=== PATIENT | male | born 1970 | race Caucasian/White ===

== ENCOUNTER 2024-01-08 03:25 | Inpatient (IN) | payer SELFPAY ==
[2024-01-08 03:52] LABS: Absolute Basophils 0.1 K/uL (0-0.5); Absolute Eosinophils 0.3 K/uL (0-0.5); Absolute Lymphocytes (CBC) 4.3 K/uL (0.7-4.9); Absolute Monocytes 0.8 K/uL (0.1-1.3); Absolute Neutrophil 3.5 K/uL (1.8-8.0); Basophils % 0.8 % (0-1.3); Hematocrit 39.4 % (39.6-49.0); Hemoglobin 13.5 g/dL (13.6-17.9); Lymphocytes % 48.1 % (15.3-44.8); MCH 32.9 pg (27.0-35.0); MCHC 34.4 g/dL (32.0-36.0); MCV 95.9 fL (80-100); MPV 7.7 fL (7.6-11.3); Monocytes % 9.3 % (3.3-12.3); Neutrophils % 38.8 % (41.7-73.7); Nucleated Red Blood Cells % 0.1 % (0-0); Platelets 244 thou/uL (152-406); RBC Red Blood Cell Count 4.11 M/uL (4.33-5.43); Red Cell Distribution Width 12.2 % (12.1-15.2)
[2024-01-08 03:53] LABS: PT Prothrombin Time 11.9 SECONDS (9.4-12.5); Protime INR 1.06
[2024-01-08 04:10] LABS: Albumin 3.7 g/dL (3.4-5.0); Albumin/Globulin Ratio 1.3 (1.1-1.8); Anion Gap 11.4 mEq/L (5.0-15.0); Bilirubin Direct 0.3 mg/dL (0-0.2); Bilirubin Indirect, Calculated 0.4 mg/dL (0.2-0.8); Bilirubin Total 0.7 mg/dL (0.2-1.0); Globulin 2.8 g/dL (2.3-3.5); Magnesium 1.7 mg/dL (1.6-2.4); Potassium 3.4 mEq/L (3.5-5.1); Protein, Total 6.5 g/dL (6.4-8.2); Troponin High Sensitivity 4.8 pg/mL (<58.9)
[2024-01-08 04:19] LABS: Thyroid Stimulating Hormone 4.38 uIU/mL (0.358-3.740)
[2024-01-08] MEDS ORDERED: ASPIRIN 81 MG CHEWABLE TABLET ONE (04:27)
[2024-01-08 06:13] LABS: Anion Gap 10.5 mEq/L (5.0-15.0); Potassium 3.5 mEq/L (3.5-5.1); Troponin High Sensitivity 4.6 pg/mL (<58.9)
--- NOTE | 2024-01-08 06:17 | EDPHYS ---
Physician Documentation [facility] Name: Jamar Hernandez Age: 53 yrs Sex: Male : 1970 Arrival Date: 01/08/2024 Time: 03:25 Bed 17 Private MD: ED Physician Juan Miguel Marie HPI: 01/07 03:33 This 53 yrs old Male presents to ER via Unassigned with complaints of Chest sp4 Pain, Numbness Of Arm. 06:08 53-year-old female presents with acute onset of chest pain, left arm numbness, and he sp4 is reporting several weeks of exertional dyspnea. . Historical: - Allergies: 03:37 No Known Allergies; ss - PMHx: 03:37 Anxiety; ss - Infectious Disease History:: Denies. - Social history:: Smoking status: Patient reports use of chewing tobacco. - Family history:: not pertinent. ROS: 06:08 Constitutional: Negative for fever, chills, and weight loss, left chest pain positive sp4 left arm numbness, positive exertional dyspnea 06:08 All other systems are negative, Exam: 04:34 Constitutional: This is a well developed, well nourished patient who is awake, alert, sp4 and in no acute distress. Head/Face: Normocephalic, atraumatic. Eyes: Pupils equal round and reactive to light, extra-ocular motions intact. Lids and lashes normal. Conjunctiva and sclera are not injected. Cornea within normal limits. Periorbital areas with no swelling, redness, or edema. ENT: Nares patent. No nasal discharge, no septal abnormalities noted. Tympanic membranes are normal and external auditory canals are clear. Oropharynx with no redness, swelling, or masses, exudates, or evidence of obstruction, uvula midline. Mucous membranes moist. Neck: Trachea midline, no thyromegaly or masses palpated, and no cervical lymphadenopathy. Supple, full range of motion without nuchal rigidity, or vertebral point tenderness. Chest/axilla: Normal chest wall appearance and motion. Nontender with no deformity. No lesions are appreciated. Cardiovascular: Regular rate and rhythm with a normal S1 and S2. No gallops, murmurs, or rubs. Normal PMI, no JVD. No pulse deficits. Respiratory: Lungs have equal breath sounds bilaterally, clear to auscultation and percussion. No rales, rhonchi or wheezes noted. No increased work of breathing, no retractions or nasal flaring. Abdomen/GI: Soft, with normal bowel sounds. No distension or tympany. No guarding or rebound. No evidence of tenderness throughout. Back: No spinal tenderness. No costovertebral tenderness. Skin: Warm, dry with normal turgor. Normal color with no rashes, no lesions, and no evidence of cellulitis. MS/ Extremity: Pulses equal, no cyanosis. Neurovascular intact. Full, normal range of motion. Neuro: Awake and alert, GCS 15, oriented to person, place, time, and situation. Cranial nerves II-XII grossly intact. Motor strength 5/5 in all extremities. Sensory grossly intact. Psych: Awake, alert, with orientation to person, place and time. Behavior, mood, and affect are within normal limits 04:34 ECG was reviewed by the Attending Physician. EKG at 0 330 normal sinus rhythm rate 82 Vital Signs: 03:35 BP 137 / 71; Pulse 83; Resp 16; Temp 98.4(TE); Pulse Ox 95% ; Weight 142.43 kg; Height ss 6 ft. 0 in. ; Pain 4/10; 05:44 BP 132 / 70; Pulse 76; Resp 14; Pulse Ox 100% ; Pain 2/10; jm12 08:39 BP 126 / 69; Pulse 70; Resp 16 S; Pulse Ox 95% on R/A; Pain 0/10; kc6 09:36 BP 111 / 59; Pulse 80; Resp 16 S; Pulse Ox 96% on R/A; kc6 03:35 Body Mass Index 42.59 (142.43 kg, 182.88 cm) ss 03:35 Pain Scale: Adult ss 05:44 Pain Scale: Adult jm12 08:39 Pain Scale: Adult kc6 MDM: 03:34 Patient medically screened. sp4 06:08 ED course: EXAMINATION: XR CHEST 1 VIEW INDICATION: Male, 53 years old, CHEST PAIN sp4 TECHNIQUE: 1 view COMPARISON(S): None. FINDINGS: Soft tissue attenuation and beam underpenetration limit assessment. SUPPORT DEVICES: Overlying leads. LUNGS/PLEURA: No consolidation, pleural effusion, or pneumothorax. HEART/MEDIASTINUM: Size within normal limits for technique. OTHER: No acute osseous findings. IMPRESSION: No acute cardiopulmonary findings.. 06:08 Differential diagnosis: acute pericarditis, anxiety, chest wall pain, cholecystitis, sp4 Cholelithiasis esophagitis, gastritis. HEART Score: History: Moderately Suspicious (1), ECG: Normal (0), Age: > 45 and < 65 years (1), Risk Factors: > or = 3 Risk factors for atherosclerotic disease (2), Troponin: < or = 1 x Normal Limit (0), Total Score = 4. Data reviewed: vital signs, nurses notes, EMS record, lab test result(s), EKG, radiologic studies, plain films. ED course: Patient warrants admission secondary to multiple risk factors also hyponatremia . 06:17 Consideration of Admission/Observation Patient was admitted/placed on observation. sp4 Escalation of care including admission/observation considered. Management of patient was discussed with the following: Hospitalist: Admit team. Lot Technician: Daria FELICIANO Cardiology . 22:59 ED course: Hyponatremia likely secondary to alcohol abuse . sp4 01/07 03:34 Order name: Basic Metabolic Panel; Complete Time: 05:23 sp4 01/07 03:34 Order name: CBC with Diff; Complete Time: 05:23 sp4 01/07 03:34 Order name: LFT's; Complete Time: 05:23 sp4 01/07 03:34 Order name: Magnesium; Complete Time: 05:23 sp4 01/07 03:34 Order name: NT PRO-BNP; Complete Time: 05:23 sp4 01/07 03:34 Order name: PT-INR; Complete Time: 05:23 sp4 01/07 03:34 Order name: Troponin HS; Complete Time: 05:23 sp4 01/07 03:41 Order name: TSH; Complete Time: 05:23 sp4 01/07 03:41 Order name: T4 Free; Complete Time: 05:23 sp4 01/07 05:23 Order name: BMP; Complete Time: 06:17 sp4 01/07 05:24 Order name: Troponin High Sensitivity; Complete Time: 06:17 sp4 01/07 06:59 Order name: Alcohol Level; Complete Time: 22:59 sp4 01/07 08:56 Order name: Urinalysis w/ reflexes EDVT 01/07 08:56 Order name: Basic Metabolic Panel EDVT 01/07 08:56 Order name: Basic Metabolic Panel EDVT 01/07 08:56 Order name: Basic Metabolic Panel EDMS 01/07 08:56 Order name: Basic Metabolic Panel EDMS 01/07 08:56 Order name: CBC with Automated Diff EDMS 01/07 08:56 Order name: CBC with Automated Diff EDMS 01/07 08:56 Order name: CBC with Automated Diff EDMS 01/07 08:56 Order name: CBC with Automated Diff EDMS 01/07 08:56 Order name: Lipid Profile EDMS 01/07 08:56 Order name: Lipid Profile EDMS 01/07 08:56 Order name: Magnesium EDMS 01/07 08:56 Order name: Magnesium EDMS 01/07 08:56 Order name: Magnesium EDMS 01/07 08:56 Order name: Magnesium EDMS 01/07 08:56 Order name: Phosphorus EDMS 01/07 08:56 Order name: Phosphorus EDMS 01/07 08:56 Order name: Phosphorus EDMS 01/07 08:57 Order name: Phosphorus EDMS 01/07 08:57 Order name: Troponin High Sensitivity EDMS 01/07 08:57 Order name: Troponin High Sensitivity; Complete Time: 22:59 EDMS 01/07 08:57 Order name: Troponin High Sensitivity EDMS 01/07 03:34 Order name: XRAY Chest (1 view) sp4 01/07 06:59 Order name: CT Chest For PE Angio; Complete Time: 22:59 sp4 01/07 08:56 Order name: Echo with Doppler EDMS 01/07 08:56 Order name: Echo with Doppler EDMS 01/07 03:34 Order name: Cardiac monitoring; Complete Time: 03:40 sp4 01/07 03:34 Order name: EKG - Nurse/Tech; Complete Time: 03:40 sp4 01/07 03:34 Order name: IV Saline Lock; Complete Time: 03:40 sp4 01/07 03:34 Order name: Labs collected and sent; Complete Time: 03:40 sp4 01/07 03:34 Order name: O2 Per Protocol; Complete Time: 03:40 sp4 01/07 03:34 Order name: O2 Sat Monitoring; Complete Time: 03:40 sp4 EC:34 Rate is 82 beats/min. Rhythm is regular, Normal Sinus Rhythm. QRS [place] is Normal. [place] sp4 interval is normal. QRS interval is normal. QT interval is normal. No Q waves. T waves are Normal. No ST changes noted. Clinical impression: Normal ECG. Interpreted by me. Reviewed by me. Administered Medications: 04:20 Drug: Aspirin PO Chewable Tablet 324 mg PO once; 81 mg tablets x 4 Route: PO; jm12 08:00 Follow up: Response: No adverse reaction [facility] 05:39 Drug: NS 0.9% IV 1000 ml IV at 1 bolus Per protocol; 1000 mL bolus Route: IV; Rate: 1 jm12 bolus; Site: left antecubital; 08:25 Follow up: Response: No adverse reaction; IV Status: Completed infusion; IV Intake: kc6 1000ml 08:00 Drug: Ativan IVP 1 mg IVP once Route: IVP; Site: left antecubital; 6 08:39 Follow up: Response: No adverse reaction; Pain is decreased; Anxiety decreased; RASS: kc6 Alert and Calm (0) 08:00 Drug: Ativan IVP 1 mg IVP once Route: IVP; Site: left antecubital; 6 08:39 Follow up: Response: No adverse reaction; Pain is decreased; Anxiety decreased; RASS: kc6 Alert and Calm (0) Disposition Summary: 01/08/24 06:17 Hospitalization Ordered Notes: Hospitalization Status: Observation sp4 Provider: Zack Cornell Location: Telemetry/MedSur (observation) sp4 Condition: Stable sp4 Problem: new sp4 Symptoms: have improved sp4 Bed/Room Type: Standard sp4 Room Assignment: 221(01/08/24 09:06) Diagnosis - Unstable angina sp4 - Hypo-osmolality and hyponatremia sp4 Forms: - Medication Reconciliation Form sp4 - SBAR form sp4 - Leadership Thank You Letter sp4 Signatures: Dispatcher [employer] EDMS aJbari Looney MD MD cha Blanchard, Shelby RN RN Dolores Brambila Kaitlyn, RN RN kc6 Juan Miguel Marie MD MD sp4 An Carvalho RN RN jm12 Corrections: (The following items were deleted from the chart) 03:34 03:34 BASIC METABOLIC PANEL+C.LAB.BRZ ordered. EDMS EDMS 03:34 03:34 CBC+H.LAB.BRZ ordered. EDMS EDMS 03:34 03:34 HEPATIC FUNCTION+C.LAB.BRZ ordered. EDMS EDMS 03:34 03:34 MAGNESIUM+C.LAB.BRZ ordered. EDMS EDMS 03:35 03:34 PROBNP+C.LAB.BRZ ordered. EDMS EDMS 03:35 03:34 PROTIME (+INR)+COAG.LAB.BRZ ordered. EDMS EDMS 03:35 03:34 Troponin High Sensitivity+C.LAB.BRZ ordered. EDMS EDMS 03:35 03:35 Chest Single View+RAD.RAD.BRZ ordered. EDMS EDMS 09:06 06:17 sp4 eb
--- NOTE | 2024-01-08 06:17 | ER ---
Nurse's Notes [facility] Name: Jamar Hernandez Age: 53 yrs Sex: Male : 1970 Arrival Date: 01/08/2024 Time: 03:25 Bed 17 Private MD: Diagnosis: Unstable angina;Hypo-osmolality and hyponatremia Presentation: 01/07 03:35 Chief complaint: Patient states: episodic chest discomfort x 1 week that got worse this ss morning. PT c/o SOB, chest tightness with L arm numbness. Pt reports symptoms feel as if they are subsiding. Coronavirus screen: Client denies travel out of the [place] in the last 14 days. Ebola Screen: Patient denies exposure to infectious person. Patient denies travel to an Ebola-affected area in the 21 days before illness onset. Initial Sepsis Screen: Does the patient meet any 2 criteria? No. Patient's initial sepsis screen is negative. Does the patient have a suspected source of infection? No. Patient's initial sepsis screen is negative. Risk Assessment: Do you want to hurt yourself or someone else? Patient reports no desire to harm self or others. Onset of symptoms was January 08, 2024. 03:35 Method Of Arrival: Ambulatory ss 03:35 Acuity: CHARLES 2 ss Triage Assessment: 03:37 General: Appears uncomfortable, Behavior is anxious, tearful. Neuro: Level of ss Consciousness is awake, alert, obeys commands, Oriented to person, place, time, situation, Human Resources Technician are equal bilaterally Moves all extremities. Full function Gait is steady, Speech is normal, Facial symmetry appears normal, Pupils are PERRLA, Denies weakness blurred vision headache. Respiratory: Airway is patent Respiratory effort is even, unlabored, Respiratory pattern is regular, symmetrical. Derm: Skin is intact, is healthy with good turgor, Skin is pink, warm \T\ dry. normal. Historical: - Allergies: 03:37 No Known Allergies; ss - PMHx: 03:37 Anxiety; ss - Infectious Disease History:: Denies. - Social history:: Smoking status: Patient reports use of chewing tobacco. - Family history:: not pertinent. Screenin:41 [facility] ED Fall Risk Assessment (Adult) History of falling in the last 3 months, jm12 including since admission No falls in past 3 months (0 pts) Confusion or Disorientation No (0 pts) Intoxicated or Sedated No (0 pts) Impaired Gait No (0 pts) Mobility Assist Device Used No (0 pt) Altered Elimination No (0 pt) Score/Fall Risk Level 0 - 2 = Low Risk. Abuse screen: Denies threats or abuse. Denies injuries from another. Nutritional screening: No deficits noted. Tuberculosis screening: No symptoms or risk factors identified. Assessment: 04:10 General: Appears in no apparent distress. Behavior is calm, cooperative. jm12 04:10 Pain: Complains of pain in chest. Neuro: No deficits noted. Cardiovascular: No deficits jm12 noted. Cardiovascular: Chest pain. Respiratory: No deficits noted. GI: No deficits noted. No signs and/or symptoms were reported involving the gastrointestinal system. : No deficits noted. No signs and/or symptoms were reported regarding the genitourinary system. EENT: No deficits noted. No signs and/or symptoms were reported regarding the EENT system. Derm: No deficits noted. No signs and/or symptoms reported regarding the dermatologic system. Musculoskeletal:. 07:15 General: Appears in no apparent distress. comfortable, well groomed, well developed, kc6 Behavior is calm, cooperative, appropriate for age. Pain: Denies pain. Neuro: Level of Consciousness is awake, alert, obeys commands, Oriented to person, place, time, situation, Appropriate for age. Cardiovascular: Capillary refill < 3 seconds. Respiratory: Airway is patent Trachea midline Respiratory effort is even, unlabored, Respiratory pattern is regular, symmetrical. GI: No signs and/or symptoms were reported involving the gastrointestinal system. : No signs and/or symptoms were reported regarding the genitourinary system. EENT: No signs and/or symptoms were reported regarding the EENT system. Derm: No signs and/or symptoms reported regarding the dermatologic system. Skin is intact, is healthy with good turgor, Skin is pink, warm \T\ dry. Musculoskeletal: No signs and/or symptoms reported regarding the musculoskeletal system. Circulation, motion, and sensation intact. Capillary refill < 3 seconds, Range of motion: intact in all extremities. 08:24 Reassessment: Patient appears in no apparent distress at this time. No changes from kc6 previously documented assessment. Patient and/or family updated on plan of care and expected duration. Pain level reassessed. Patient is alert, oriented x 3, equal unlabored respirations, skin warm/dry/pink. 09:36 Reassessment: Patient appears in no apparent distress at this time. No changes from kc6 previously documented assessment. Patient and/or family updated on plan of care and expected duration. Pain level reassessed. Patient is alert, oriented x 3, equal unlabored respirations, skin warm/dry/pink. Vital Signs: 03:35 BP 137 / 71; Pulse 83; Resp 16; Temp 98.4(TE); Pulse Ox 95% ; Weight 142.43 kg; Height ss 6 ft. 0 in. ; Pain 4/10; 05:44 BP 132 / 70; Pulse 76; Resp 14; Pulse Ox 100% ; Pain 2/10; jm12 08:39 BP 126 / 69; Pulse 70; Resp 16 S; Pulse Ox 95% on R/A; Pain 0/10; kc6 09:36 BP 111 / 59; Pulse 80; Resp 16 S; Pulse Ox 96% on R/A; kc6 03:35 Body Mass Index 42.59 (142.43 kg, 182.88 cm) ss 03:35 Pain Scale: Adult ss 05:44 Pain Scale: Adult jm12 08:39 Pain Scale: Adult kc6 ED Course: 03:26 Patient arrived in ED. jj6 03:33 Juan Miguel Marie MD is Attending Physician. sp4 03:33 Sabina Manzanares, MARTHA is Primary Nurse. ss 03:37 Triage completed. ss 03:37 Arm band placed on right wrist. ss 03:39 Inserted saline lock: 20 gauge in left antecubital area, using aseptic technique. Blood ss collected. Flushed with 10 mL NS. 03:49 XRAY Chest (1 view) In Process Unspecified. EDMS 06:11 Viri Leiva MD is Hospitalizing Provider. sp4 06:11 Hospitalizing Provider role handed off by Viri Leiva MD sp4 06:11 Zack Cornell is Hospitalizing Provider. sp4 07:00 Patient has correct armband on for positive identification. Placed in gown. Bed in low kc6 position. Call light in reach. Side rails up X 1. Report received from Sabina Hernandez RN. environmental lawyer on. Pulse ox on. NIBP on. Door closed. Noise minimized. Lights dimmed. Warm blanket given. Pillow given. 07:00 Patient maintains SpO2 saturation greater than 95% on room air. kc6 08:18 CT Chest For PE Angio In Process Unspecified. EDMS 09:47 No provider procedures requiring assistance completed. Patient admitted, IV remains in kc6 place. Administered Medications: 04:20 Drug: Aspirin PO Chewable Tablet 324 mg PO once; 81 mg tablets x 4 Route: PO; jm12 08:00 Follow up: Response: No adverse reaction kc6 05:39 Drug: NS 0.9% IV 1000 ml IV at 1 bolus Per protocol; 1000 mL bolus Route: IV; Rate: 1 jm12 bolus; Site: left antecubital; 08:25 Follow up: Response: No adverse reaction; IV Status: Completed infusion; IV Intake: kc6 1000ml 08:00 Drug: Ativan IVP 1 mg IVP once Route: IVP; Site: left antecubital; kc6 08:39 Follow up: Response: No adverse reaction; Pain is decreased; Anxiety decreased; RASS: 6 Alert and Calm (0) 08:00 Drug: Ativan IVP 1 mg IVP once Route: IVP; Site: left antecubital; kc6 08:39 Follow up: Response: No adverse reaction; Pain is decreased; Anxiety decreased; RASS: kc6 Alert and Calm (0) Medication: 09:47 VIS not applicable for this client. kc6 Intake: 08:25 IV: 1000ml; Total: 1000ml. kc6 Outcome: 06:17 Decision to Hospitalize by Provider. sp4 09:47 Admitted to Med/surg accompanied by tech, via wheelchair, with chart, kc6 09:47 Condition: good 09:47 Instructed on the need for admit, 09:48 Patient left the ED. 6 Signatures: Dispatcher [employer] EDTN Sabina Manzanares RN RN ss Jeffries, Jennifer jj6 Campbell, Kaitlyn, RN RN kc6 Juan Miguel Marie MD MD sp4 An Carvalho RN RN jm12
--- NOTE | 2024-01-08 06:51 | P.HP ---
Certification for Inpatient Patient admitted to: Observation With expected LOS: <2 Midnights Patient will require the following post-hospital care: None Practitioner: I am a practitioner with admitting privileges, knowledge of patient current condition, hospital course, and medical plan of care. Services: Services provided to patient in accordance with Admission requirements found in Title 42 Section 412.3 of the Code of Federal Regulations Patient History Date of Service: 01/08/24 Reason for admission: Chest pain r/o History of Present Illness: Jamar Hernandez is a 53 year old male with Pmhx of anxiety and tobacco abuse who presents to the ED with acute chest pain that radiates to the left arm associated with exertional dyspnea for a few weeks and now still with intermitent chest pain/pressure. Troponin and EKG negative but continues with chest pain. Blood pressure WNL and HR NSR. On evaluation, his face is flushed, he ambulated independently, conversing well, and in no acute distress. He reports drinking 6-8 beers nightly. He reports visiting the area for vacation at the beach. Initial vitals BP 137 / 71; Pulse 83; Resp 16; Temp 98.4(TE); Pulse Ox 95% Laboratory evaluation sodium 127, potassium 3.4, serum glucose 115, serum alcohol 78 Chest xray result pending CTA chest reports "No significant pericardial or pleural fluid. 22 mm pericardial lymph nodes seen.Inadequate opacification of the pulmonary arterial tree for assessment. No acute aortic finding seen. No acute lung findings seen" Jamar will be admitted to hospitalist service for further evaluation of unstable angina, Dr. Huff consulted Home Medications: Fenofibrate [Tricor] 145 mg PO DAILY 01/08/24 - Past Medical/Surgical History -: Anxiety -: Hypertension -: Hyperlipidemia -: Hypercholesterolemia -: Alcohol abuse - Social History Smoking Status: Never smoker Alcohol use: Yes CD- Drugs: No Review of Systems Respiratory: Shortness of Breath Cardiovascular: Chest Pain (radiates to left arm) Physical Examination - Physical Exam General: Alert, In no apparent distress, Oriented x3 HEENT: Atraumatic, Normocephalic, PERRLA Neck: Supple, JVD not distended Respiratory: Clear to auscultation bilaterally, Normal air movement Cardiovascular: Normal pulses, Regular rate/rhythm, Normal S1 S2, Edema (trace to BLE) Capillary refill: <2 Seconds Gastrointestinal: Normal bowel sounds, Soft and benign, Distended (obese) Musculoskeletal: No clubbing Integumentary: No rashes Neurological: Normal speech, Normal tone - Studies Laboratory Data (last 24 hrs) 01/08/24 01/08/24 01/08/24 05:48 03:34 03:34 WBC 8.90 Hgb 13.5 L Hct 39.4 L Plt Count 244 PT 11.9 INR 1.06 Sodium 128 L Potassium 3.5 BUN 7 Creatinine 1.15 Glucose 122 H Magnesium Total Bilirubin AST ALT Alkaline Phosphatase 01/08/24 03:34 WBC Hgb Hct Plt Count PT INR Sodium 127 L Potassium 3.4 L BUN 7 Creatinine 1.15 Glucose 115 H Magnesium 1.7 Total Bilirubin 0.7 AST 36 ALT 35 Alkaline Phosphatase 33 L Assessment and Plan - Plan Assessment and plan Chest pain rule out Stable Angina - EKG: No obvious ST segment changes - troponin 4.8/4.6/4.1 - Ordered transthoracic echocardiogram - chest [id number] pending - CTA chest reports "No significant pericardial or pleural fluid. 22 mm pericardial lymph nodes seen.Inadequate opacification of the pulmonary arterial tree for assessment. No acute aortic finding seen. No acute lung findings seen" - Consult Cardiology - recommends stress test on Wednesday - S/P aspirin 324 mg PO x 1 in ED - Start daily baby aspirin and statin - Symptom control with PRN acetaminophen, nitroglycerin, morphine - continuous telemetry -TSH/FreeT4 4.80/0.88, A1C, lipid panel pending -Trace peripheral edema to BLE, HCTZ 25 mg Hyperglycemia -Serum glucose 115 -Monitor in AM labs, A1C in AM -No report for history of Diabetes Severe Obesity -BMI 61.32 -sedentary lifestyle Hyponatremia Alcohol abuse -reports drinking 6-8 beers nightly -Serum alcohol 78 -Na 127 -cessation education provided -Gentle IVF -CIWA, monitor for withdrawl -continuous telemetry -folic acid, thiamine, multivitamin -librium PRN History of anxiety History of hypertension History of HLD -Continue home medication DVT PPx SCDs Full code LOS 24-hour OBS Discharge Plan: Home Plan to discharge in: 48 Hours - Advance Directives Does patient have a Living Will: No Does patient have a Durable POA for Healthcare: No
[2024-01-08] MEDS ORDERED: LORazepam 2 MG/ML VIAL ONE (07:49)
--- NOTE | 2024-01-08 08:30 | RAD REPORT ---
EXAM DESCRIPTION: CT - Chest For Pe Angio - 01/08/2024 8:17 am CLINICAL HISTORY: Chest pain. CHEST PAIN COMPARISON: <Comparisons> TECHNIQUE: CT angiogram of the pulmonary arteries was performed with MIP. All CT scans are performed using dose optimization technique as appropriate and may include automated exposure control or mA/KV adjustment according to patient size. FINDINGS: The pulmonary arterial tree is poorly opacified presumably related to bolus timing issues. Pulmonary thromboembolism cannot effectively excluded. No acute aortic finding demonstrated. The lungs are clear. No significant pericardial or pleural fluid. 22 mm pericardial lymph nodes seen. No concerning bony finding. IMPRESSION: Inadequate opacification of the pulmonary arterial tree for assessment. No acute aortic finding seen. No acute lung findings seen.
[2024-01-08] MEDS ORDERED: HYDRALAZINE HCL 20 MG/ML VIAL IV PRN (08:47)
[2024-01-08] MEDS ORDERED: ACETAMINOPHEN 500 MG TAB PO PRN (08:47)
[2024-01-08] MEDS ORDERED: ONDANSETRON 4 MG/2 ML VIAL IV PRN (08:47)
[2024-01-08] MEDS ORDERED: NITROGLYCERIN 0.4 MG/TAB SL ONE (08:47)
[2024-01-08] MEDS ORDERED: MORPHINE 2 MG/ML SYR IV PRN (08:47)
[2024-01-08] MEDS: HEPARIN 5000 UNIT/ML 1 ML VIAL SQ SCH (09:58)
[2024-01-08] MEDS: NA CHLORIDE 0.9% 1,000 ML IV SCH (09:58)
[2024-01-08] MEDS: ASPIRIN EC 81 MG TAB PO SCH (09:58)
[2024-01-08 10:22] VITALS: BMI 6131.7
--- NOTE | 2024-01-08 13:48 | P.CNS ---
Date of Consult: 01/08/24 Chief Complaint: Chest pain r/o History of Present Illness: Patient with PMH of HTN, Anxiety presented with chest pain that woke him from sleep yesterday, radiating to his left arm, pressure in nature, severe, report having the same pain before not that intense, still feel some pain but improving, denies any other associated symptoms. Home medications list reviewed: Yes Home Medications: Fenofibrate [Tricor] 145 mg PO DAILY 01/08/24 - Past Medical/Surgical History Diabetic: No - Social History Place of Residence: Home Review of Systems 10-point ROS is otherwise unremarkable Physical Examination Temp Pulse Resp BP Pulse Ox 97.1 F 84 16 142/72 H 96 01/08/24 12:00 01/08/24 12:00 01/08/24 12:00 01/08/24 12:00 01/08/24 12:00 General: Alert, In no apparent distress HEENT: Atraumatic, PERRLA, Mucous membr. moist/pink, EOMI, Sclerae nonicteric Neck: Supple, 2+ carotid pulse no bruit, No LAD, Without JVD or thyroid abnormality Respiratory: Clear to auscultation bilaterally, Normal air movement Cardiovascular: Regular rate/rhythm, Normal S1 S2 Gastrointestinal: Normal bowel sounds, No tenderness Musculoskeletal: No tenderness Integumentary: No rashes Neurological: Normal gait, Normal speech, Normal tone, Normal affect Lymphatics: No axilla or inguinal lymphadenopathy Laboratory Data (last 24 hrs) 01/08/24 01/08/24 01/08/24 05:48 03:34 03:34 WBC 8.90 Hgb 13.5 L Hct 39.4 L Plt Count 244 PT 11.9 INR 1.06 Sodium 128 L Potassium 3.5 BUN 7 Creatinine 1.15 Glucose 122 H Magnesium Total Bilirubin AST ALT Alkaline Phosphatase 01/08/24 03:34 WBC Hgb Hct Plt Count PT INR Sodium 127 L Potassium 3.4 L BUN 7 Creatinine 1.15 Glucose 115 H Magnesium 1.7 Total Bilirubin 0.7 AST 36 ALT 35 Alkaline Phosphatase 33 L - Problems (1) Stable angina Current Visit: Yes Status: Acute Plan: Patient got multiple risk factors including HTN, Obesity Nuclear stress test on Wednesday. continue ASA and lipitor (2) HTN (hypertension) Current Visit: Yes Status: Acute Plan: continue patient home medications. start HCTZ 25 mg daily as patient got trace BLE edema (3) HLD (hyperlipidemia) Current Visit: Yes Status: Acute Plan: lipitor 40 mg daily
[2024-01-08] MEDS: ACETAMINOPHEN 325 MG TABLET PO PRN (18:13)
[2024-01-08] MEDS: ATORVASTATIN 40 MG TAB PO SCH (21:00)
[2024-01-09 07:00] LABS: Absolute Eosinophils 0.1 K/uL (0-0.5); Absolute Lymphocytes (CBC) 1.6 K/uL (0.7-4.9); Absolute Monocytes 0.7 K/uL (0.1-1.3); Absolute Neutrophil 3.5 K/uL (1.8-8.0); Basophils % 0.7 % (0-1.3); Eosinophils % 2.3 % (0-4.4); Hematocrit 36.7 % (39.6-49.0); Hemoglobin 12.5 g/dL (13.6-17.9); MCH 33.2 pg (27.0-35.0); MCHC 34.2 g/dL (32.0-36.0); MCV 97.3 fL (80-100); MPV 7.9 fL (7.6-11.3); Nucleated Red Blood Cells % 0.1 % (0-0); Platelets 201 thou/uL (152-406); RBC Red Blood Cell Count 3.77 M/uL (4.33-5.43); Red Cell Distribution Width 12.2 % (12.1-15.2)
[2024-01-09 07:32] LABS: Anion Gap 7.6 mEq/L (5.0-15.0); Magnesium 2.1 mg/dL (1.6-2.4); Phosphorus 2.4 mg/dL (2.5-4.9); Potassium 3.6 mEq/L (3.5-5.1)
[2024-01-09] MEDS: FOLIC ACID 1 MG TABLET PO SCH (08:06)
[2024-01-09] MEDS: MULTIVITAMIN TAB PO SCH (08:06)
[2024-01-09] MEDS: hydroCHLOROthiazide 25 MG TAB PO SCH (08:06)
[2024-01-09] MEDS: FENOFIBRATE 160 MG TAB PO SCH (08:07)
[2024-01-09] MEDS: THIAMINE HCL 100 MG TABLET PO SCH (08:07)
[2024-01-09 12:29] LABS: Specific Gravity 1.015 (1.005-1.030); Urine Bilirubin NEGATIVE (Negative); Urine Blood Negative (Negative); Urine Clarity Clear (Clear); Urine Color Yellow (Yellow); Urine Glucose NEGATIVE (Negative); Urine Ketones NEGATIVE (Negative); Urine Microscopic Reflex YN NO UMIC; Urine Nitrite NEGATIVE (Negative); Urine Protein NEGATIVE (Negative); Urine Urobilinogen Normal (Normal); Urine pH 5.5 (5.0-7.0)
--- NOTE | 2024-01-09 19:20 | P.PN ---
Date of Service: 01/09/24 Subjective Stress test in the AM per Dr. Huff intermittent chest pain No new complaints ROS 10 point ROS as noted above, otherwise negative Physical Exam General: Alert and Oriented x3, NAD HEENT: Atraumatic, Normocephalic, PERRLA Neck: Supple, JVD not distended Respiratory: Clear to auscultation bilaterally, Normal air movement Cardiovascular: RRR, Normal S1 S2, Edema (trace to BLE) Capillary refill: <2 Seconds Gastrointestinal: Normal bowel sounds, Soft and benign, Distended (obese) Musculoskeletal: No clubbing, 2+ peripheral pulses Integumentary: No rashes Neurological: Normal speech, Normal tone Vitals Reviewed Problem list Chest pain rule out Stable Angina Hyperglycemia Severe Obesity Hyponatremia Alcohol abuse History of anxiety History of hypertension History of HLD Assessment and Plan Chest pain rule out Stable Angina - EKG: No obvious ST segment changes - troponin 4.8/4.6/4.1 - Ordered transthoracic echocardiogram - chest [id number] pending - CTA chest reports "No significant pericardial or pleural fluid. 22 mm pericardial lymph nodes seen.Inadequate opacification of the pulmonary arterial tree for assessment. No acute aortic finding seen. No acute lung findings seen" - Consult Cardiology - recommends stress test on Wednesday - S/P aspirin 324 mg PO x 1 in ED - Start daily baby aspirin and statin - Symptom control with PRN acetaminophen, nitroglycerin, morphine - continuous telemetry -TSH/FreeT4 4.80/0.88, A1C, lipid panel (triglycerides 203, cholesterol 167, LDL 68, HDL 58) -Trace peripheral edema to BLE, HCTZ 25 mg Hyperglycemia -Serum glucose 126 -Monitor in AM labs, A1C remains pending -No report for history of Diabetes Severe Obesity -BMI 61.32 -sedentary lifestyle Hyponatremia Alcohol abuse -reports drinking 6-8 beers nightly -Serum alcohol 78 (01/07) -No withdrawl symptoms noted -Na 139- improved -cessation education provided -Gentle IVF -CIWA, monitor for withdrawl -continuous telemetry -folic acid, thiamine, multivitamin -librium PRN History of anxiety History of hypertension History of HLD -Continue home medication DVT PPx SCDs Full code LOS 24-hour OBS Discharge Plan: Home Plan to discharge in: 48 Hours
[2024-01-09] MEDS: MULTIVITAMIN PO SCH (21:00)
[2024-01-09] MEDS: EZETIMIBE 10 MG TAB PO SCH (21:05)
[2024-01-09] MEDS: BUSPIRONE HCL 15 MG TABLET PO SCH (21:05)
[2024-01-09] MEDS: atenoloL 50 MG TAB PO SCH (21:33)
[2024-01-09] MEDS: lisinopriL 20 MG TAB PO SCH (21:34)
[2024-01-09] MEDS: chlordiazePOXIDE HCl 5 MG CAP PO PRN (23:07)
[2024-01-10 05:08] LABS: Absolute Basophils 0.1 K/uL (0-0.5); Absolute Eosinophils 0.2 K/uL (0-0.5); Absolute Lymphocytes (CBC) 2.2 K/uL (0.7-4.9); Absolute Monocytes 0.6 K/uL (0.1-1.3); Absolute Neutrophil 2.7 K/uL (1.8-8.0); Eosinophils % 2.9 % (0-4.4); Hematocrit 36.2 % (39.6-49.0); Hemoglobin 12.5 g/dL (13.6-17.9); Lymphocytes % 38.7 % (15.3-44.8); MCH 33.8 pg (27.0-35.0); MCHC 34.7 g/dL (32.0-36.0); MCV 97.5 fL (80-100); MPV 7.7 fL (7.6-11.3); Monocytes % 10.3 % (3.3-12.3); Neutrophils % 47.1 % (41.7-73.7); Nucleated Red Blood Cells % 0.1 % (0-0); Platelets 215 thou/uL (152-406); RBC Red Blood Cell Count 3.71 M/uL (4.33-5.43); Red Cell Distribution Width 12.1 % (12.1-15.2)
[2024-01-10 05:39] LABS: Anion Gap 5.5 mEq/L (5.0-15.0); Magnesium 2.1 mg/dL (1.6-2.4); Phosphorus 2.8 mg/dL (2.5-4.9); Potassium 3.5 mEq/L (3.5-5.1)
[2024-01-10] MEDS ORDERED: REGADENOSON 0.4 MG/5 ML SYR IV ONE (08:12)
[2024-01-10] MEDS: allopurinoL 100 MG TAB PO SCH (10:04)
[2024-01-10] MEDS: PANTOPRAZOLE 40MG TABLET PO SCH (10:06)
--- NOTE | 2024-01-10 10:24 | TREADPHA ---
DX: CHEST PAIN Date of Study: 01/10/2024 Ht: 0' 6 " Wt: 314 lb 0 oz Consulting Physician: SEFERINO MEDICATIONS: TYLENOL, ZYLOPRIM, ASPIRIN, TENORMIN, LIPITOR, BUSPIRONE, LIBRIUM, ZETIA, TRICOR, FOLIC ACID, HEPARIN, APRESOLINE, HYDRODIURIL, PRINIVIL, MORPHINE, ZOFRAN, PROTONIX, VITAMIN B1 HISTORY: 53 YEAR OLD MALE WITH COMPLAINTS OF CHEST PAIN. HISTORY OF HYPERTENSION AND HYPERLIPIDEMIA. PHYSICIAL EXAMINATION: RESTING B.P.: 123/69 RESTING H.R.: 63 RESTING EKG: SINUS RHYTHM PROTOCOL: PHARMACOLOGIC EXERCISE TIME: 3:30 B.P. AT PEAK STRESS: 105/45 IMPRESSION: LEXISCAN STRESS TEST PERFORMED ORDERED. CARDIOLITE INJECTED PER PROTOCOL - SEE NUCLEAR MEDICINE REPORT. NO PREMATURE VENTRICULAR COMPLEXES, SUPRAVENTRICULAR TACHYCARDIA, ARRHYTHMIAS NOTED. PATIENT STATES MILD CHEST PAIN DURING PROCEDURE. RESOLVED POST PROCEDURE.
[2024-01-10 10:44] VITALS: O2SAT 100
--- NOTE | 2024-01-10 12:04 | RAD REPORT ---
EXAM DESCRIPTION: NM - Rest Stress Cardiac Imaging - 01/10/2024 9:36 am CLINICAL HISTORY: CP Chest pain. COMPARISON: Chest Single View dated 01/08/2024; Chest For Pe Angio dated 01/08/2024 TECHNIQUE: The patient was administered approximately 9.1 mCi of Tc 99m Sestamibi prior to resting S PECT imaging of the heart. The patient was then administered approximately 27.3 mCi of Tc 99m Sestami bi following exercise or pharmacologic stress. Multiplanar SPECT images were reviewed. FINDINGS: No stress induced ischemic defect is seen to suggest stress induced ischemia. No fixed def ect is seen to suggest hibernating myocardium or scarred myocardium. The end diastolic volume is 151 ml, the end systolic volume is 60 ml, and the ejection fraction is 61 %. IMPRESSION: No evidence of stress induced ischemia. Normal left ventricular ejection fraction, 61%.
[2024-01-10 12:38] VITALS: BP 164/113; TEMP 98.3
--- NOTE | 2024-01-10 12:40 | RAD REPORT ---
EXAM DESCRIPTION: XR CHEST 1 VIEW CLINICAL HISTORY: Male, 53 years old, CHEST PAIN TECHNIQUE: 1 view COMPARISON: None. FINDINGS: Soft tissue attenuation and beam underpenetration limit assessment. SUPPORT DEVICES: Overlying leads. LUNGS/PLEURA: No consolidation, pleural effusion, or pneumothorax. HEART/MEDIASTINUM: Size within normal limits for technique. OTHER: No acute osseous findings. IMPRESSION: No acute cardiopulmonary findings. Electronically signed by: Ishan Gresham MD 01/08/2024 04:41 AM CDT RP Due to temporary technical issues with the PACS/Fluency reporting system, reports are being signed by the in house radiologist without review as a courtesy to ensure prompt reporting. The interpreting r adiologist is fully responsible for the content of the report.
--- NOTE | 2024-01-10 12:44 | P.PN ---
Subjective Date of Service: 01/10/24 Chief Complaint: Chest pain r/o Subjective: No new changes, No C/O voiced, Tolerating diet, Ambulating, Improving Review of Systems 10-point ROS is otherwise unremarkable Physical Examination - Vital Signs Temperature: 98.3 F Blood Pressure: 164/113 Pulse: 64 Respirations: 16 Pulse Ox (%): 98 - Physical Exam General: Alert, In no apparent distress HEENT: Atraumatic, PERRLA, EOMI Neck: Supple, JVD not distended Respiratory: Clear to auscultation bilaterally, Normal air movement Cardiovascular: Regular rate/rhythm, Normal S1 S2 Gastrointestinal: Normal bowel sounds, No tenderness Musculoskeletal: No tenderness Integumentary: No rashes Neurological: Normal speech, Normal tone, Normal affect Lymphatics: No axilla or inguinal lymphadenopathy - Studies Laboratory Data (last 24 hrs) 01/10/24 01/10/24 04:44 04:44 WBC 5.70 Hgb 12.5 L Hct 36.2 L Plt Count 215 Sodium 138 Potassium 3.5 BUN 7 Creatinine 1.09 Glucose 129 H Phosphorus 2.8 Magnesium 2.1 Medications List Reviewed: Yes Assessment And Plan - Current Problems (Diagnosis) (1) Stable angina Current Visit: Yes Status: Acute Plan: Patient got multiple risk factors including HTN, Obesity stress test done and it is normal, echo is normal continue ASA and lipitor (2) HTN (hypertension) Current Visit: Yes Status: Acute Plan: continue patient home medications. HCTZ 25 mg daily (3) HLD (hyperlipidemia) Current Visit: Yes Status: Acute Plan: lipitor 40 mg daily
--- NOTE | 2024-01-10 14:04 | P.DS ---
Admission Date: 01/10/24 Discharge Date: 01/10/24 Disposition: ROUTINE DISCHARGE Discharge Condition: GOOD Reason for Admission: Chest pain r/o Brief History of Present Illness: Diagnosis Chest pain rule out Stable Angina Hyperglycemia Severe Obesity Hyponatremia Alcohol abuse History of anxiety History of hypertension History of HLD HPI 01/08/24 Jamar Hernandez is a 53 year old male with Pmhx of anxiety and tobacco abuse who presents to the ED with acute chest pain that radiates to the left arm associated with exertional dyspnea for a few weeks and now still with intermitent chest pain/pressure. Troponin and EKG negative but continues with chest pain. Blood pressure WNL and HR NSR. On evaluation, his face is flushed, he ambulated independently, conversing well, and in no acute distress. He repo rts drinking 6-8 beers nightly. He reports visiting the area for vacation at the beach. Initial vitals BP 137 / 71; Pulse 83; Resp 16; Temp 98.4(TE); Pulse Ox 95% Laboratory evaluation sodium 127, potassium 3.4, serum glucose 115, serum alcohol 78 Chest xray result pending CTA chest reports "No significant pericardial or pleural fluid. 22 mm pericardial lymph nodes seen.Inadequate opacification of the pulmonary arterial tree for assessment. No acute aortic finding seen. No acute lung findings seen" Jamar will be admitted to hospitalist service for further evaluation of unstable angina, Dr. Huff consulted Hospital Course: Jamar Hernandez is a pleasant 53 year old male with a past medical history significant for anxiety, severe obesity, HTN, HLD, alcohol abuse, and tobacco abuse who was admitted to the [facility] on 01/08/24 for Chest pain r/o. Presented to the ED with chief complaint of chest pain that radiates to left arm associated with exertional dyspnea for a few weeks and now still with intermittent chest pain and pressure. Troponin and EKG both negative, Dr. Huff consulted and decided he would benefit with a stress test. The Stress test was performed on 01/09 with no ischemia present. Dr. Huff has cleared Jamar for discharge but needs to follow-up with cardiology, Dr. Huff himself as he is a high risk of heart disease. His chest pain has resolved, he is ambulating independently, tolerating PO diet, urinating without difficulty, and on RA. On 01/10/24, Jamar was seen on morning rounds and deemed medically stable for discharge. Jamar was discharged with instructions to schedule follow-up appointments with PCP, Dr. Huff. Jamar was provided prescriptions for aspirin, Lipitor, HCTZ. Physical Exam General: AAO x3, NAD HEENT: Atraumatic, Normocephalic, PERRLA Neck: Supple, JVD not distended Respiratory: Clear to auscultation bilaterally, symmetrical chest wall movement, room air Cardiovascular: NSR, Normal S1 S2, Edema (trace to BLE) Capillary refill: <2 Seconds Gastrointestinal: Normal bowel sounds, Soft on palpation, Distended (obese) Musculoskeletal: No clubbing, 2+ peripheral pulses Integumentary: No rashes Neurological: Normal speech, Normal tone Vital Signs/Physical Exam: Temp Pulse Resp BP Pulse Ox 98.3 F 64 16 164/113 H 98 01/10/24 12:44 01/10/24 12:44 01/10/24 12:44 01/10/24 12:44 01/10/24 12:44 Laboratory Data at Discharge: WBC 5.70 thou/uL (4.3-10.9) 01/10/24 04:44 Hgb 12.5 g/dL (13.6-17.9) L 01/10/24 04:44 Hct 36.2 % (39.6-49.0) L 01/10/24 04:44 Plt Count 215 thou/uL (152-406) 01/10/24 04:44 PT 11.9 SECONDS (9.4-12.5) 01/08/24 03:34 INR 1.06 01/08/24 03:34 Sodium 138 mEq/L (136-145) 01/10/24 04:44 Potassium 3.5 mEq/L (3.5-5.1) 01/10/24 04:44 BUN 7 mg/dL (7-18) 01/10/24 04:44 Creatinine 1.09 mg/dL (0.70-1.30) 01/10/24 04:44 Glucose 129 mg/dL (74-106) H 01/10/24 04:44 Phosphorus 2.8 mg/dL (2.5-4.9) 01/10/24 04:44 Magnesium 2.1 mg/dL (1.6-2.4) 01/10/24 04:44 Total Bilirubin 0.7 mg/dL (0.2-1.0) 01/08/24 03:34 AST 36 U/L (15-37) 01/08/24 03:34 ALT 35 U/L (16-61) 01/08/24 03:34 Alkaline Phosphatase 33 U/L (45-117) L 01/08/24 03:34 Triglycerides 203 mg/dL (<150) H 01/09/24 06:38 Cholesterol 167 mg/dL (<200) 01/09/24 06:38 HDL Cholesterol 58 mg/dL (40-60) 01/09/24 06:38 Cholesterol/HDL Ratio 2.88 01/09/24 06:38 Home Medications: Allopurinol 100 mg PO DAILY 01/08/24 Aspirin [Aspirin EC 81 MG] 81 mg PO BEDTIME 01/08/24 Buspirone HCl [Buspar] 30 mg PO BID 01/08/24 Ezetimibe [Zetia*] 10 mg PO BEDTIME 01/08/24 Fenofibrate [Tricor*] 145 mg PO BEDTIME 01/08/24 Lisinopril [Zestril] 20 mg PO DAILY 01/08/24 Multivitamin [Rwf-Cqpesx-Yiopf] 1 each PO BEDTIME 01/08/24 Pantoprazole [Protonix Tab*] 40 mg PO DAILY 01/08/24 atenoloL [Atenolol] 50 mg PO BEDTIME 01/08/24 Aspirin [Adult Aspirin Regimen] 81 mg PO DAILY 30 Days #30 tab 01/10/24 Atorvastatin Calcium [Lipitor] 40 mg PO DAILY 30 Days #30 tab 01/10/24 hydroCHLOROthiazide [Hydrodiuril*] 25 mg PO DAILY 30 Days #30 tab 01/10/24 New Medications: Aspirin [Adult Aspirin Regimen] 81 mg PO DAILY 30 Days #30 tab hydroCHLOROthiazide [Hydrodiuril*] 25 mg PO DAILY 30 Days #30 tab Atorvastatin Calcium [Lipitor] 40 mg PO DAILY 30 Days #30 tab Physician Discharge Instructions: Jamar was evaluted for chest pain, Stress test today was clear of stress induced ischemia. Jamar has risk factors for heart disease. Please follow up closely with your education sales consultant or return to visit with Dr. Huff. 1. Please call and schedule a follow-up appointment with your PCP in 3-5 days - Please follow-up with your PCP for medication refills/adjustments 2. Please call and schedule a follow-up appointment with education sales consultant in your area or Dr. Huff in 1 week -Stress test and ECHO review 3. Continue heart healthy diet 4. activity restrictions do not lift anything greater than 10 pounds for the next 3 days 5. Return to the ED if symptoms worsen New medications Aspirin 81 mg daily Lipitor 40 mg p.o. daily Hydrochlorothiazide 25 mg p.o. daily Triglyceride 203 (normal < 150), cholesterol 167 (normal <200), LDL 68, HDL 38 Guidelines for high risk of heart disease with cholesterol above 100 is to add a statin medication. Please review with your education sales consultant if you have further questions. Diet: AHA Activity: No lifting more than 10 lbs Followup: Leonidas Huff MD [ACTIVE - CAN ADMIT] - 1-2 Weeks OOT,OOT [Primary Care Provider] -
--- NOTE | 2024-01-11 07:15 | ECHO ---
HEIGHT: 0 ft 6 in WEIGHT: 314 lb 0 oz DATE OF STUDY: 01/10/[address]: Nidhi Joseph NP 2-DIMENSIONAL: YES M.MODE: YES DOPPLER: YES COLOR FLOW: YES TDS: PORTABLE: YES DEFINITY: BUBBLE STUDY: DIAGNOSIS: CHEST PAIN RULE OUT CARDIAC HISTORY: CATHERIZATION: NO SURGERY: NO PROSTHETIC VALVE: NO PACEMAKER: NO MEASUREMENTS (cm) DIASTOLIC (NORMALS) SYSTOLIC (NORMALS) IVSd 1.2 (0.6-1.2) LA Diam 3.9 (1.9-4.0) LVEF 60-65% LVIDd 5.2 (3.5-5.7) LVIDs 3.8 (2.0-3.5) %FS 26% LVPWd 1.3 (0.6-1.2) Ao Diam 3.2 (2.0-3.7) 2 DIMENSIONAL ASSESSMENT: RIGHT ATRIUM: NORMAL LEFT ATRIUM: NORMAL RIGHT VENTRICLE: NORMAL LEFT VENTRICLE: NORMAL TRICUSPID VALVE: NORMAL MITRAL VALVE: NORMAL PULMONIC VALVE: NORMAL AORTIC VALVE: NORMAL PERICARDIAL EFFUSION: NONE AORTIC ROOT: NORMAL LEFT VENTRICULAR WALL MOTION: NORMAL DOPPLER/COLOR FLOW: NORMAL COMMENTS: 1. NORMAL LEFT VENTRICULAR SYSTOLIC FUNCTION, EJECTION FRACTION 60-65%, NORMAL WALL MOTION 2. NORMAL DIASTOLIC FUNCTION TECHNOLOGIST: LILIANA LOWE
--- NOTE | 2024-01-11 12:46 | EKG ---
Test Date: 2024-01-08 Test Time: 03:30:51 Statistician Theoretical: AF MEASUREMENT RESULTS: Intervals: Rate: 82 VT: 194 QRSD: 82 QT: 380 QTc: 443 Bim: P: 33 VT: 194 QRS: 64 T: 55 INTERPRETIVE STATEMENTS: Normal sinus rhythm Low voltage QRS Borderline ECG No previous ECG available for comparison Electronically Signed On 01-11-24 12:43:32 CDT by Leonidas Huff
== END 2024-01-10 14:48 | disposition home or self-care (01) | DRG 311 ==
LOC: ER 03:25 → ERHOLD 08:47 → 2ND 09:17 → OBSVTOIN 01-10 10:54
PROVIDERS: ADMIT Internal Medicine; ATTEND Internal Medicine
DX: I20.89 Other forms of angina pectoris (principal); E87.1 Hypo-osmolality and hyponatremia; Z68.41 Body mass index [BMI] 40.0-44.9, adult; E66.9 Obesity, unspecified; F10.10 Alcohol abuse, uncomplicated; I10 Essential (primary) hypertension; F41.9 Anxiety disorder, unspecified; E78.00 Pure hypercholesterolemia, unspecified; F17.220 Nicotine dependence, chewing tobacco, uncomplicated; R73.9 Hyperglycemia, unspecified; Z79.82 Long term (current) use of aspirin; Z79.899 Other long term (current) drug therapy
CPT/HCPCS: 36415; 71045; 71275; 78452; 80048; 80061; 80076; 81003; 82077; 83036; 83735; 83880; 84100; 84439; 84443; 84484; 85025; 85610; 93005; 93017; 93306; 96361; 96374; 99285; A9500; G0378; J1644; J2270; J2785; J7030; Q9967